=== PATIENT | male | born 1970 | race African-American/Black ===

== ENCOUNTER 2018-02-23 20:07 | Emergency (ER) | payer OTHER ==
[~2018-02-23] VITALS: Ht 185.4 cm; Wt 140.3 kg
[2018-02-23 20:41] LABS: HEMATOCRIT 38.9 % (38.0-50.0); HEMOGLOBIN 13.3 G/DL (12.5-16.6); MCH 26.4 PG (29.0-34.0); MCHC 34.2 G/DL (30.0-36.0); MCV 77.2 FL (86-99); PLATELET COUNT 321 K/uL (156-360); RBC DIS.WIDTH-CV 13.9 % (11.8-14.6); RBC DIS.WIDTH-SD 38.4 % (39-53); RED BLOOD COUNT 5.04 M/uL (4.00-5.50); WHITE BLOOD COUNT 10.9 K/uL (4.1-10.2)
[2018-02-23 20:56] LABS: APPEARANCE CLEAR ((CLEAR)); BILIRUBIN NEGATIVE; BLOOD NEGATIVE; COLOR STRAW ((YELLOW)); GLUCOSE (STRIP) >=500; KETONES NEGATIVE; LEUKOCYTES TRACE; NITRITE NEGATIVE; PROTEIN (STRIP) NEGATIVE; SPECIFIC GRAVITY 1.032 (1.000-1.030); UROBILINOGEN 0.2 MG/DL (0.2-1.0)
[2018-02-23 20:57] LABS: CHLORIDE 105 mEq/L (99-109); POTASSIUM 4.2 mEq/L (3.7-5.4); SODIUM 138 mEq/L (136-147)
[2018-02-23 20:59] LABS: GLUCOSE 328 mg/dL (70-99)
[2018-02-23 21:03] LABS: CREATININE 1.4 mg/dL (0.6-1.3); GFR ESTIMATE (CALCULATED) > 59 mL/min/ (58.99-99999)
[2018-02-23 21:04] LABS: UREA NITROGEN (BUN) 11 mg/dL (9-23)
[2018-02-23 21:22] LABS: BACTERIA NONE SEEN /HPF; EPITHELIAL CELLS RARE /HPF; MUCUS NONE SEEN /LPF; RED BLOOD CELLS 0-5 /HPF (0-5); UCUL ADDED? YES
[2018-02-23] MEDS ORDERED: CIPRO500 MG PO (22:28)
[2018-02-23 22:49] VITALS: BP 113/74
== END 2018-02-23 22:50 | disposition home or self-care (01) ==
LOC: RME 20:07 → EME 20:07 → RME 22:50
PROVIDERS: Physician Assistant
DX: R31.9 Hematuria, unspecified (principal); E11.9 Type 2 diabetes mellitus without complications; F17.200 Nicotine dependence, unspecified, uncomplicated
CPT/HCPCS: 74176; 80048; 81003; 82948; 85027; 87086; 99281; 99284